=== PATIENT | female | born 1975 | race Caucasian/White ===

== ENCOUNTER 2017-01-02 15:08 | Emergency (ER) | payer OTHER ==
[~2017-01-02] VITALS: Ht 165.1 cm; Wt 76.3 kg
[~2017-01-02 15:08] MED LIST: BACLOFEN20 MG PO; BUSPAR15 MG PO; BUTALB-APAP-CA1 EACH PO; CARAFATE1 GM PO; CATAPRES-TTS 11 EACH TD; CEFTIN500 MG PO; CENTANY30 GM TP; CIPRO500 MG PO; CIPROFLOXACIN500 M1; CLONIDINE1 EAC1 TD; DIAZEPAM10 MG; ERGOCALCIF50000 UNIT PO; FLEXERIL10 MG PO; FLUTICASONE PRO16 GM NS; Flagyl PO; Flonase BOTH NARES; Flovent 220 mcg IH; GABAPENTIN800 MG; GABAPENTIN800 MG PO; INDOCIN25 MG PO; K-DUR20 MEQ PO; KLONOPIN1 M2 TD; KLOR-CON M2020 MEQ PO; LIPITOR40 MG PO; LORTAB 5-325 M1 EACH PO; Lioresal PO; METRONIDAZOLE500 MG; MOTRIN IB200 MG PO; MOTRIN800 MG PO; MUPIROCIN22 GM; NEURONTIN300 MG PO; NORCO 7.5/321 TABLET PO; OMEPRAZOLE40 M1 PO; PANTOPRAZOLE SO40 MG PO; PERCOCET 5/31 TABLET PO; PHENERGAN12.5 M1 PO; PHENERGAN50 MG PR; PRILOSEC40 MG PO; PROMETHAZINE HC25 M1; PROMETHAZINE HC25 M1 PO; PROTONIX40 MG PO; PROZAC20 M1 PO; PROZAC20 MG PO; PROZAC40 MG PO; PROzac PO; Proventil,Ventolin H IH; REQUIP2 MG PO; RESTORIL15 MG PO; RITALIN20 MG PO; TRAMADOL HCL50 MG; TRAMADOL HCL50 MG PO; TYLENOL ARTHRI650 MG PO; TYLENOL WITH C1 EACH PO; ULTRAM50 MG PO; VALACYCLOVIR500 MG PO; VALIUM10 MG PO; VALIUM5 MG PO; VENTOLIN HFA18 GM IH; VIBRAMYCIN100 MG PO; VICODIN,LORT1 TABLET PO; VOLTAREN75 MG PO; ValTRex PO; XANAX0.5 MG PO; ZANAFLEX4 MG PO; ZOFRAN4 MG PO; ZYRTEC10 M2 PO
[2017-01-02 15:15] VITALS: BP 140/85
[2017-01-02 15:59] LABS: HEMATOCRIT 44.1 % (36.0-46.0); MCH 29.7 PG (29.0-34.0); MCHC 32.4 G/DL (30.0-36.0); MCV 91.7 FL (83-99); MEAN PLAT.VOLUME 11.4 uM^3 (9.5-12.4); PLATELET COUNT 253 K/uL (156-360); RBC DIS.WIDTH-CV 14.3 % (11.8-14.6); RBC DIS.WIDTH-SD 48.2 % (39-53); RED BLOOD COUNT 4.81 M/uL (3.80-5.20); WHITE BLOOD COUNT 17.2 K/uL (4.1-10.2)
[2017-01-02 16:20] LABS: ANION GAP 12 MEQ/L (2-14); CHLORIDE 107 MEQ/L (99-109); POTASSIUM 3.2 MEQ/L (3.7-5.4); SAMPLE HEMOLYSIS CHECK 0; SAMPLE ICTERIC CHECK 0; SAMPLE LIPEMIA CHECK 0; SODIUM 139 MEQ/L (136-147)
[2017-01-02 16:26] LABS: GFR ESTIMATE (CALCULATED) > 59 mL/min/; GLUCOSE 115 mg/dL (70-99); UREA NITROGEN (BUN) 15 mg/dL (9-23)
[2017-01-02 20:27] LABS: DIRECT BILIRUBIN 0.1 mg/dL (0.0-0.3); TOTAL BILIRUBIN 0.2 MG/DL (0.0-1.0)
[2017-01-02 20:33] LABS: ALKALINE PHOSPHATASE 77 IU/L (3-129); LIPASE 14 U/L (1.0-51.0)
[2017-01-02 20:37] LABS: QUANTITATIVE HCG < 4.0 MIU/ML
== END 2017-01-02 20:41 | disposition left against medical advice (07) ==
LOC: EME 15:08
DX: R10.9 Unspecified abdominal pain (principal); R31.9 Hematuria, unspecified; Z87.442 Personal history of urinary calculi; J45.909 Unspecified asthma, uncomplicated; M79.7 Fibromyalgia; F17.200 Nicotine dependence, unspecified, uncomplicated; Z91.040 Latex allergy status; Z88.1 Allergy status to other antibiotic agents; Z88.6 Allergy status to analgesic agent; Z88.8 Allergy status to other drugs, medicaments and biological substances; Z88.2 Allergy status to sulfonamides
CPT/HCPCS: 71020; 80048; 80076; 81003; 83690; 84702; 85027; 94640; 99281; 99282

== ENCOUNTER 2017-01-04 03:54 | Emergency (ER) | payer OTHER ==
[~2017-01-04] VITALS: Ht 165.1 cm; Wt 76.6 kg
[2017-01-04 04:52] LABS: HEMATOCRIT 43.4 % (36.0-46.0); MCH 29.6 PG (29.0-34.0); MCHC 31.8 G/DL (30.0-36.0); MCV 93.1 FL (83-99); MEAN PLAT.VOLUME 11.3 uM^3 (9.5-12.4); PLATELET COUNT 250 K/uL (156-360); RBC DIS.WIDTH-CV 14.5 % (11.8-14.6); RBC DIS.WIDTH-SD 49.4 % (39-53); RED BLOOD COUNT 4.66 M/uL (3.80-5.20); WHITE BLOOD COUNT 21.6 K/uL (4.1-10.2)
[2017-01-04 05:01] LABS: CHLORIDE 109 mEq/L (99-109); SODIUM 142 mEq/L (136-147)
[2017-01-04 05:02] LABS: POTASSIUM 3.9 mEq/L (3.7-5.4)
[2017-01-04 05:03] LABS: GLUCOSE 92 mg/dL (70-99)
[2017-01-04 05:04] LABS: ANION GAP 9 MEQ/L (2-14)
[2017-01-04 05:07] LABS: GFR ESTIMATE (CALCULATED) > 59 mL/min/
[2017-01-04 05:08] LABS: UREA NITROGEN (BUN) 21 mg/dL (9-23)
[2017-01-04 05:13] LABS: TROP-I INTERPRETATION NEGATIVE; TROPONIN-I < 0.01 ng/mL (0.0-0.30)
[2017-01-04 05:25] LABS: TOTAL BILIRUBIN 0.2 mg/dL (0.0-1.0)
[2017-01-04 05:26] LABS: ALKALINE PHOSPHATASE 80 IU/L (3-129)
[2017-01-04 05:29] LABS: DIRECT BILIRUBIN 0.1 mg/dL (0.0-0.3)
[2017-01-04 05:30] LABS: LIPASE 16 U/L (1.0-51.0)
[2017-01-04 05:36] LABS: QUANTITATIVE HCG < 4.0 MIU/ML
[2017-01-04 05:37] LABS: ADD MIUA? YES; BILIRUBIN NEGATIVE; BLOOD NEGATIVE; COLOR AMBER ((YELLOW)); GLUCOSE (STRIP) NEGATIVE; KETONES 5; LEUKOCYTES NEGATIVE; NITRITE POSITIVE; PROTEIN (STRIP) 30; SPECIFIC GRAVITY 1.029 (1.000-1.030); UROBILINOGEN 0.2 MG/DL (0.2-1.0)
[2017-01-04 05:55] LABS: EPITHELIAL CELLS 3+ /HPF; RED BLOOD CELLS NONE SEEN /HPF (0-5); WHITE BLOOD CELLS 0-5 /HPF (0-5)
[2017-01-04 05:56] LABS: MUCUS 1+ /LPF
[2017-01-04 05:57] LABS: BACTERIA 4+ /HPF; UCUL ADDED? YES
[2017-01-04 06:48] LABS: INFLUENZA A VIRAL ANTIGEN NEGATIVE; INFLUENZA B VIRAL ANTIGEN NEGATIVE
[2017-01-04] MEDS ORDERED: CIPRO250 MG PO (07:33)
[2017-01-04] MEDS ORDERED: ZOFRAN8 MG PO (07:33)
[2017-01-04] MEDS ORDERED: OXAYDO5 MG PO (07:33)
[2017-01-04 07:46] VITALS: BP 119/69
== END 2017-01-04 08:44 | disposition home or self-care (01) ==
LOC: EME 03:54
PROVIDERS: Emergency Medicine
DX: N30.00 Acute cystitis without hematuria (principal); D72.829 Elevated white blood cell count, unspecified; M79.1 Myalgia; J45.909 Unspecified asthma, uncomplicated; M79.7 Fibromyalgia; F17.200 Nicotine dependence, unspecified, uncomplicated
CPT/HCPCS: 71020; 74177; 80048; 80076; 81003; 83605; 83690; 84484; 84702; 85027; 87040; 87077; 87086; 87186; 87502; 93005; 99281; 99285; J0744; J2270; J2405; J3010; J3360; Q0169

== ENCOUNTER 2017-01-17 19:49 | Emergency (ER) | payer OTHER ==
[~2017-01-17] VITALS: Ht 162.6 cm; Wt 74.4 kg
[~2017-01-17 19:49] MED LIST changes: +CIPRO250 MG PO; +OXAYDO5 MG PO; +ZOFRAN8 MG PO
[2017-01-17 20:10] LABS: HEMATOCRIT 43.2 % (36.0-46.0); MCH 29.8 PG (29.0-34.0); MCHC 32.4 G/DL (30.0-36.0); MCV 91.9 FL (83-99); MEAN PLAT.VOLUME 11.9 uM^3 (9.5-12.4); PLATELET COUNT 262 K/uL (156-360); RBC DIS.WIDTH-CV 14.7 % (11.8-14.6); RBC DIS.WIDTH-SD 49.9 % (39-53); WHITE BLOOD COUNT 17.5 K/uL (4.1-10.2)
[2017-01-17 20:21] LABS: CHLORIDE 109 mEq/L (99-109); POTASSIUM 3.2 mEq/L (3.7-5.4); SODIUM 144 mEq/L (136-147)
[2017-01-17 20:23] LABS: GLUCOSE 83 mg/dL (70-99)
[2017-01-17 20:24] LABS: ANION GAP 11 MEQ/L (2-14)
[2017-01-17 20:26] LABS: ADD MIUA? YES; BILIRUBIN NEGATIVE; BLOOD NEGATIVE; GLUCOSE (STRIP) NEGATIVE; KETONES 5; LEUKOCYTES NEGATIVE; NITRITE NEGATIVE; PROTEIN (STRIP) 30
[2017-01-17 20:27] LABS: GFR ESTIMATE (CALCULATED) > 59 mL/min/
[2017-01-17 20:28] LABS: UREA NITROGEN (BUN) 16 mg/dL (9-23)
[2017-01-17 20:33] LABS: COLOR YELLOW ((YELLOW))
[2017-01-17 20:52] LABS: QUANTITATIVE HCG < 4.0 MIU/ML
[2017-01-17 21:12] LABS: BACTERIA 3+ /HPF; CALCIUM OXALATE CRYSTALS 4+ /HPF; EPITHELIAL CELLS 4+ /HPF; MUCUS NONE SEEN /LPF; RED BLOOD CELLS 0-5 /HPF (0-5); UCUL ADDED? NO; WHITE BLOOD CELLS 0-5 /HPF (0-5)
[2017-01-17] MEDS ORDERED: ULTRAM50 MG PO (22:00)
[2017-01-17] MEDS ORDERED: LEVAQUIN750 MG PO (22:00)
[2017-01-17] MEDS ORDERED: ZOFRAN ODT4 MG PO (22:00)
[2017-01-17 22:18] VITALS: BP 121/84
[2017-01-18] MEDS ORDERED: ZOFRAN ODT4 MG PO (17:15)
[2017-01-18] MEDS ORDERED: TRAMADOL HCL50 MG PO (17:16)
[2017-01-18] MEDS ORDERED: LEVAQUIN750 MG PO (17:16)
[2017-01-18] MEDS ORDERED: ADVIL,NUPRIN,M200 MG PO (17:17)
== END 2017-01-17 22:20 | disposition home or self-care (01) ==
LOC: EME 19:49 → RME 19:49
DX: N39.0 Urinary tract infection, site not specified (principal); F12.90 Cannabis use, unspecified, uncomplicated; R11.2 Nausea with vomiting, unspecified; F17.200 Nicotine dependence, unspecified, uncomplicated
CPT/HCPCS: 80048; 81003; 84702; 85027; 87086; 99281; 99284

== ENCOUNTER 2017-01-18 12:37 | Inpatient (IN) | payer OTHER ==
[~2017-01-18] VITALS: Ht 162.6 cm; Wt 73.5 kg
[~2017-01-18 12:37] MED LIST changes: +LEVAQUIN750 MG PO; +ZOFRAN ODT4 MG PO
[2017-01-18 13:49] LABS: BASOPHIL COUNT 0.1 K/uL (0-0.1); EOSINOPHIL (%) 3.6 % (0-5); EOSINOPHIL COUNT 0.5 K/uL (0-0.3); HEMATOCRIT 40.6 % (36.0-46.0); IMMATURE GRANULOCYTE (%) 1.2 % (0.0-0.7); IMMATURE GRANULOCYTE COUNT 0.2 K/uL; INSTRUMENT ABS NEUTROPHIL CT 8.7 K/uL; LYMPHOCYTE COUNT 2.4 K/uL (1.0-2.8); MCH 29.7 PG (29.0-34.0); MCHC 32.3 G/DL (30.0-36.0); MCV 92.1 FL (83-99); MEAN PLAT.VOLUME 11.4 uM^3 (9.5-12.4); NEUTROPHIL (%) 68.2 % (45-76); NEUTROPHIL COUNT 8.7 K/uL (1.8-6.4); PLATELET COUNT 226 K/uL (156-360); RBC DIS.WIDTH-CV 14.7 % (11.8-14.6); RBC DIS.WIDTH-SD 49.6 % (39-53); RED BLOOD COUNT 4.41 M/uL (3.80-5.20); WHITE BLOOD COUNT 12.7 K/uL (4.1-10.2)
[2017-01-18 14:01] LABS: CHLORIDE 109 mEq/L (99-109); POTASSIUM 3.4 mEq/L (3.7-5.4); SODIUM 139 mEq/L (136-147)
[2017-01-18 14:04] LABS: ANION GAP 9 MEQ/L (2-14); GLUCOSE 107 mg/dL (70-99)
[2017-01-18 14:05] LABS: TOTAL BILIRUBIN 0.2 mg/dL (0.0-1.0)
[2017-01-18 14:06] LABS: SERUM ETHYL ALCOHOL < 10 mg/dL
[2017-01-18 14:07] LABS: ALKALINE PHOSPHATASE 59 IU/L (3-129); GFR ESTIMATE (CALCULATED) > 59 mL/min/
[2017-01-18 14:08] LABS: UREA NITROGEN (BUN) 14 mg/dL (9-23)
[2017-01-18 14:15] LABS: QUANTITATIVE HCG < 4.0 MIU/ML
[2017-01-18] MEDS ORDERED: ZOFRAN ODT4 MG PO (17:15)
[2017-01-18] MEDS ORDERED: TRAMADOL HCL50 MG PO (17:16)
[2017-01-18] MEDS ORDERED: LEVAQUIN750 MG PO (17:16)
[2017-01-18] MEDS ORDERED: ADVIL,NUPRIN,M200 MG PO (17:17)
[2017-01-18 17:46] LABS: ADD MIUA? YES; BILIRUBIN NEGATIVE; BLOOD NEGATIVE; COLOR YELLOW ((YELLOW)); GLUCOSE (STRIP) NEGATIVE; KETONES NEGATIVE; LEUKOCYTES NEGATIVE; NITRITE NEGATIVE; PROTEIN (STRIP) NEGATIVE; SPECIFIC GRAVITY 1.017 (1.000-1.030); UROBILINOGEN 0.2 MG/DL (0.2-1.0)
[2017-01-18 17:57] LABS: COCAINE PRESUMPTIVE POSITIVE (150 ng/mL); METHAMPHETAMINE NEGATIVE (500 ng/mL); OPIATES (MORPHINE) PRESUMPTIVE POSITIVE (100 ng/mL); PHENCYCLIDINE NEGATIVE (25 ng/mL); THC CANNABINOIDS PRESUMPTIVE POSITIVE (50 ng/mL)
[2017-01-18 17:58] LABS: ADD MEDTOX COMMENT Y; AMPHETAMINE NEGATIVE (500 ng/mL); BARBITURATES NEGATIVE (200 ng/mL); BENZODIAZEPINES PRESUMPTIVE POSITIVE (150 ng/mL); INTERNAL CONTROLS VALID? YES; METHADONE NEGATIVE (200 ng/mL); OXYCODONE NEGATIVE (100 ng/mL); PROPOXYPHENE NEGATIVE (300 ng/mL); TRICYCLIC ANTIDEPRESSANTS NEGATIVE (300 ng/mL)
[2017-01-18 18:00] LABS: BACTERIA RARE /HPF; EPITHELIAL CELLS 2+ /HPF; MUCUS 1+ /LPF; RED BLOOD CELLS 0-5 /HPF (0-5); UCUL ADDED? NO; WHITE BLOOD CELLS 0-5 /HPF (0-5)
[2017-01-18 19:30] LABS: BENZODIAZEPINES QUANT VALUE 0 NG/ML
[2017-01-18 19:41] LABS: BENZODIAZEPINES, URINE SCREEN Negative (200 ng/mL)
[2017-01-18 20:50] VITALS: BP 117/78
[2017-01-19 12:46] VITALS: BP 109/65
[2017-01-19 16:12] VITALS: BP 107/62
[2017-01-20 07:43] VITALS: BP 96/53
[2017-01-20] MEDS ORDERED: DULOXETINE HCL30 MG PO (08:52)
== END 2017-01-20 10:04 | disposition home or self-care (01) | DRG 885 ==
LOC: EME 12:37 → EDOF 18:43 → 1WEST 18:43
PROVIDERS: Emergency Medicine
DX: F32.1 Major depressive disorder, single episode, moderate (principal); F17.210 Nicotine dependence, cigarettes, uncomplicated; F12.90 Cannabis use, unspecified, uncomplicated; M79.7 Fibromyalgia; R45.851 Suicidal ideations; G89.29 Other chronic pain; R82.90 Unspecified abnormal findings in urine; Z91.14 Patient's other noncompliance with medication regimen; Z91.040 Latex allergy status
CPT/HCPCS: 74176; 80053; 81003; 84702; 84999; 85025; 87086; 90839; 99281; 99285; G0480

== ENCOUNTER 2017-02-03 16:31 | Emergency (ER) | payer OTHER ==
[~2017-02-03] VITALS: Ht 165.1 cm; Wt 72.9 kg
[~2017-02-03 16:31] MED LIST changes: +ADVIL,NUPRIN,M200 MG PO; +DULOXETINE HCL30 MG PO
[2017-02-03 17:44] LABS: HEMATOCRIT 39.6 % (36.0-46.0); MCH 29.5 PG (29.0-34.0); MCHC 32.8 G/DL (30.0-36.0); MEAN PLAT.VOLUME 11.6 uM^3 (9.5-12.4); PLATELET COUNT 194 K/uL (156-360); RBC DIS.WIDTH-CV 14.6 % (11.8-14.6); RBC DIS.WIDTH-SD 48.4 % (39-53)
[2017-02-03 17:52] LABS: CHLORIDE 111 mEq/L (99-109); POTASSIUM 3.4 mEq/L (3.7-5.4); SODIUM 143 mEq/L (136-147)
[2017-02-03 17:54] LABS: GLUCOSE 99 mg/dL (70-99)
[2017-02-03 17:56] LABS: ANION GAP 11 MEQ/L (2-14)
[2017-02-03 17:58] LABS: GFR ESTIMATE (CALCULATED) > 59 mL/min/
[2017-02-03 17:59] LABS: UREA NITROGEN (BUN) 9 mg/dL (9-23)
[2017-02-03 17:59] LABS: ADD MIUA? YES; BILIRUBIN NEGATIVE; BLOOD NEGATIVE; COLOR YELLOW ((YELLOW)); GLUCOSE (STRIP) NEGATIVE; KETONES NEGATIVE; LEUKOCYTES NEGATIVE; NITRITE NEGATIVE; PROTEIN (STRIP) 30; UROBILINOGEN 0.2 MG/DL (0.2-1.0)
[2017-02-03 18:00] VITALS: BP 124/73
[2017-02-03 18:03] LABS: BACTERIA RARE /HPF; EPITHELIAL CELLS 1+ /HPF; MUCUS 1+ /LPF; RED BLOOD CELLS 0-5 /HPF (0-5); WHITE BLOOD CELLS 0-5 /HPF (0-5)
== END 2017-02-03 18:30 | disposition home or self-care (01) ==
LOC: EME 16:31
PROVIDERS: Emergency Medicine
DX: M79.7 Fibromyalgia (principal); E87.6 Hypokalemia; R68.83 Chills (without fever); J45.909 Unspecified asthma, uncomplicated; F31.9 Bipolar disorder, unspecified; F43.10 Post-traumatic stress disorder, unspecified; F42.8 Other obsessive-compulsive disorder; F41.0 Panic disorder [episodic paroxysmal anxiety]; F91.3 Oppositional defiant disorder; F17.200 Nicotine dependence, unspecified, uncomplicated
CPT/HCPCS: 80048; 81003; 85027; 87086; 99281; 99284

== ENCOUNTER 2017-04-22 16:20 | Emergency (ER) | payer OTHER ==
[~2017-04-22] VITALS: Ht 160 cm; Wt 75.0 kg
[2017-04-22 19:21] LABS: BASOPHIL COUNT 0.1 K/uL (0-0.1); EOSINOPHIL (%) 4.8 % (0-5); EOSINOPHIL COUNT 0.6 K/uL (0-0.3); HEMATOCRIT 40.9 % (36.0-46.0); IMMATURE GRANULOCYTE (%) 0.6 % (0.0-0.7); IMMATURE GRANULOCYTE COUNT 0.1 K/uL; INSTRUMENT ABS NEUTROPHIL CT 8.1 K/uL; LYMPHOCYTE COUNT 3.3 K/uL (1.0-2.8); MCH 30.3 PG (29.0-34.0); MCV 89.3 FL (83-99); MEAN PLAT.VOLUME 11.9 uM^3 (9.5-12.4); MONOCYTE (%) 4.9 % (3-12); MONOCYTE COUNT 0.6 K/uL (0-0.8); NEUTROPHIL (%) 63.1 % (45-76); NEUTROPHIL COUNT 8.1 K/uL (1.8-6.4); PLATELET COUNT 161 K/uL (156-360); RBC DIS.WIDTH-CV 14.3 % (11.8-14.6); RBC DIS.WIDTH-SD 46.1 % (39-53); RED BLOOD COUNT 4.58 M/uL (3.80-5.20); WHITE BLOOD COUNT 12.8 K/uL (4.1-10.2)
[2017-04-22 19:31] LABS: CHLORIDE 107 mEq/L (99-109); POTASSIUM 3.7 mEq/L (3.7-5.4); SODIUM 139 mEq/L (136-147)
[2017-04-22 19:34] LABS: GLUCOSE 88 mg/dL (70-99)
[2017-04-22 19:35] LABS: ANION GAP 11 MEQ/L (2-14)
[2017-04-22 19:36] LABS: TOTAL BILIRUBIN 0.2 mg/dL (0.0-1.0)
[2017-04-22 19:37] LABS: ALKALINE PHOSPHATASE 78 IU/L (3-129); GFR ESTIMATE (CALCULATED) > 59 mL/min/
[2017-04-22 19:39] LABS: UREA NITROGEN (BUN) 11 mg/dL (9-23)
[2017-04-22 19:46] LABS: QUANTITATIVE HCG < 4.0 MIU/ML
[2017-04-22 19:48] LABS: ADD MIUA? NO; BILIRUBIN NEGATIVE; BLOOD NEGATIVE; COLOR YELLOW ((YELLOW)); GLUCOSE (STRIP) NEGATIVE; KETONES NEGATIVE; LEUKOCYTES NEGATIVE; NITRITE NEGATIVE; PROTEIN (STRIP) NEGATIVE; SPECIFIC GRAVITY 1.006 (1.000-1.030); UCUL ADDED? NO; UROBILINOGEN 0.2 MG/DL (0.2-1.0)
[2017-04-22] MEDS ORDERED: FLOMAX0.4 MG PO (21:47)
[2017-04-22 21:59] VITALS: BP 127/79
== END 2017-04-22 22:02 | disposition home or self-care (01) ==
LOC: EME 16:20
PROVIDERS: Emergency Medicine
DX: R33.9 Retention of urine, unspecified (principal); R10.9 Unspecified abdominal pain; K57.30 Diverticulosis of large intestine without perforation or abscess without bleeding; K42.9 Umbilical hernia without obstruction or gangrene; R91.1 Solitary pulmonary nodule; Z90.49 Acquired absence of other specified parts of digestive tract; Z90.710 Acquired absence of both cervix and uterus; F17.200 Nicotine dependence, unspecified, uncomplicated
CPT/HCPCS: 74176; 80053; 81003; 84702; 85025; 87086; 99281; 99285; J3010

== ENCOUNTER 2017-10-22 20:21 | Inpatient (IN) | payer OTHER ==
[~2017-10-22] VITALS: Ht 165.1 cm; Wt 78.4 kg
[~2017-10-22 20:21] MED LIST changes: +ADDERALL XR 3030 MG PO; +FLOMAX0.4 MG PO
[2017-10-22 20:47] LABS: HEMATOCRIT 39.9 % (36.0-46.0); MCH 31.1 PG (29.0-34.0); MCHC 35.1 G/DL (30.0-36.0); MCV 88.7 FL (83-99); PLATELET COUNT 195 K/uL (156-360); RBC DIS.WIDTH-CV 13.8 % (11.8-14.6); RBC DIS.WIDTH-SD 44.8 % (39-53); WHITE BLOOD COUNT 14.4 K/uL (4.1-10.2)
[2017-10-22 20:56] LABS: CHLORIDE 106 mEq/L (99-109); POTASSIUM 3.1 mEq/L (3.7-5.4); SODIUM 138 mEq/L (136-147)
[2017-10-22 20:57] LABS: GLUCOSE 114 mg/dL (70-99)
[2017-10-22 21:01] LABS: GFR ESTIMATE (CALCULATED) > 59 mL/min/
[2017-10-22 21:02] LABS: UREA NITROGEN (BUN) 16 mg/dL (9-23)
[2017-10-22 21:10] LABS: TROP-I INTERPRETATION NEGATIVE; TROPONIN-I 0.01 ng/mL (0.0-0.30)
[2017-10-23] MEDS ORDERED: TRAZODONE HCL50 MG PO (00:12)
[2017-10-23] MEDS ORDERED: CONCERTA36 MG PO (00:12)
[2017-10-23 03:18] LABS: TROP-I INTERPRETATION NEGATIVE; TROPONIN-I < 0.01 ng/mL (0.0-0.30)
[2017-10-23 07:11] LABS: APPEARANCE CLEAR ((CLEAR)); BILIRUBIN NEGATIVE; BLOOD NEGATIVE; COLOR YELLOW ((YELLOW)); GLUCOSE (STRIP) NEGATIVE; KETONES NEGATIVE; LEUKOCYTES NEGATIVE; NITRITE NEGATIVE; PROTEIN (STRIP) NEGATIVE; UCUL ADDED? NO; UROBILINOGEN 0.2 MG/DL (0.2-1.0)
[2017-10-23 08:11] LABS: SPECIFIC GRAVITY 1.074 (1.000-1.030)
[2017-10-23 08:54] LABS: CHLORIDE 111 mEq/L (99-109); SODIUM 144 mEq/L (136-147)
[2017-10-23 08:55] LABS: POTASSIUM 3.9 mEq/L (3.7-5.4)
[2017-10-23 08:56] LABS: GLUCOSE 94 mg/dL (70-99)
[2017-10-23 09:00] LABS: CREATININE 0.8 mg/dL (0.6-1.3); GFR ESTIMATE (CALCULATED) > 59 mL/min/
[2017-10-23 09:01] LABS: UREA NITROGEN (BUN) 11 mg/dL (9-23)
[2017-10-23 09:14] VITALS: BP 112/65
[2017-10-23] MEDS ORDERED: PROZAC40 MG PO (12:00)
== END 2017-10-23 09:15 | disposition left against medical advice (07) | DRG 385 ==
LOC: EME 20:21 → EDOF 10-23 02:02 → ENRESERV 10-23 02:11 → EDOF 10-23 09:15
PROVIDERS: Hospitalist; Internal Medicine
DX: K51.011 Ulcerative (chronic) pancolitis with rectal bleeding (principal); J18.9 Pneumonia, unspecified organism; N30.20 Other chronic cystitis without hematuria; M79.7 Fibromyalgia; G43.909 Migraine, unspecified, not intractable, without status migrainosus; M54.9 Dorsalgia, unspecified; H54.62 Unqualified visual loss, left eye, normal vision right eye; F41.0 Panic disorder [episodic paroxysmal anxiety]; R20.2 Paresthesia of skin; R42 Dizziness and giddiness; F31.9 Bipolar disorder, unspecified; F42.9 Obsessive-compulsive disorder, unspecified; F43.10 Post-traumatic stress disorder, unspecified; H53.8 Other visual disturbances; J45.909 Unspecified asthma, uncomplicated; F17.200 Nicotine dependence, unspecified, uncomplicated; Z90.710 Acquired absence of both cervix and uterus
CPT/HCPCS: 70450; 70498; 71045; 71275; 74177; 80048; 81003; 83605; 83880; 84484; 85027; 87040; 87493; 93005; J1956; J2060; J2270; J2405; J7030

== ENCOUNTER 2017-10-23 09:29 | Inpatient (IN) | payer OTHER ==
[~2017-10-23] VITALS: Ht 165.1 cm; Wt 78.8 kg
[~2017-10-23 09:29] MED LIST changes: +CONCERTA36 MG PO; +TRAZODONE HCL50 MG PO
[2017-10-23] MEDS ORDERED: PROZAC40 MG PO (12:00)
[2017-10-23 14:46] LABS: TROP-I INTERPRETATION NEGATIVE; TROPONIN-I 0.01 ng/mL (0.0-0.30)
[2017-10-23 15:09] LABS: HEMOGLOBIN A1c (GLYCOHEMOGLOB) 5.4 % HGB (Below 5.7)
[2017-10-23 20:40] VITALS: BP 101/57
[2017-10-24 02:09] LABS: BENZODIAZEPINES, URINE SCREEN POSITIVE (200 ng/mL)
[2017-10-24 04:08] VITALS: BP 102/58
[2017-10-24 06:51] LABS: ALBUMIN 2.8 G/DL (3.2-4.8); ALKALINE PHOSPHATASE 53 IU/L (3-129); ALT (GPT) 10 IU/L (3-49); AST (GOT) 12 IU/L (2-34); CHLORIDE 112 MEQ/L (99-109); CREATININE 0.7 MG/DL (0.6-1.3); GFR ESTIMATE (CALCULATED) > 59 mL/min/; GLUCOSE 74 mg/dL (70-99); POTASSIUM 3.6 MEQ/L (3.7-5.4); SODIUM 140 MEQ/L (136-147); TOTAL BILIRUBIN 0.3 MG/DL (0.0-1.0); UREA NITROGEN (BUN) 10 mg/dL (9-23)
[2017-10-24 07:13] LABS: HEMATOCRIT 34.3 % (36.0-46.0); MCH 29.6 PG (29.0-34.0); MCHC 31.8 G/DL (30.0-36.0); PLATELET COUNT 160 K/uL (156-360); RBC DIS.WIDTH-CV 14.1 % (11.8-14.6); RBC DIS.WIDTH-SD 47.8 % (39-53); RED BLOOD COUNT 3.68 M/uL (3.80-5.20); WHITE BLOOD COUNT 9.2 K/uL (4.1-10.2)
[2017-10-24 07:23] LABS: HEMOGLOBIN 10.9 G/DL (11.9-15.5); MCV 93.2 FL (83-99)
[2017-10-24 08:19] VITALS: BP 101/59
[2017-10-24 11:42] VITALS: BP 119/72
[2017-10-24 14:40] LABS: BASOPHIL (%) 0.5 % (0-1); BASOPHIL COUNT 0.1 K/uL (0-0.1); EOSINOPHIL (%) 5.9 % (0-5); EOSINOPHIL COUNT 0.6 K/uL (0-0.3); HEMATOCRIT 34.1 % (36.0-46.0); HEMOGLOBIN 11.1 G/DL (11.9-15.5); IMMATURE GRANULOCYTE (%) 0.9 % (0.0-0.7); LYMPHOCYTE (%) 14.9 % (15-42); LYMPHOCYTE COUNT 1.5 K/uL (1.0-2.8); MCHC 32.6 G/DL (30.0-36.0); MCV 92.2 FL (83-99); MONOCYTE (%) 6.6 % (3-12); MONOCYTE COUNT 0.7 K/uL (0-0.8); NEUTROPHIL (%) 71.2 % (45-76); NEUTROPHIL COUNT 7.3 K/uL (1.8-6.4); PLATELET COUNT 146 K/uL (156-360); RBC DIS.WIDTH-CV 14.1 % (11.8-14.6); RBC DIS.WIDTH-SD 47.8 % (39-53); WHITE BLOOD COUNT 10.2 K/uL (4.1-10.2)
[2017-10-24 14:50] LABS: PTT 27.8 SEC (25-37)
[2017-10-24 14:51] LABS: INTER. NORMALIZED RATIO 1.2
[2017-10-24 15:33] LABS: THYROTROPIN (TSH) 1.3 MIU/L (0.4-5.5)
[2017-10-24 17:09] VITALS: BP 133/78
[2017-10-24 17:09] LABS: AMYLASE 28 IU/L (1-118)
[2017-10-25 00:25] VITALS: BP 126/67
[2017-10-25 04:04] VITALS: BP 121/57
[2017-10-25 06:36] LABS: CHLORIDE 110 MEQ/L (99-109); CREATININE 0.7 MG/DL (0.6-1.3); GFR ESTIMATE (CALCULATED) > 59 mL/min/; GLUCOSE 77 mg/dL (70-99); POTASSIUM 4.2 MEQ/L (3.7-5.4); SODIUM 138 MEQ/L (136-147); UREA NITROGEN (BUN) 7 mg/dL (9-23)
[2017-10-25 06:46] LABS: HEMATOCRIT 34.7 % (36.0-46.0); HEMOGLOBIN 11.7 G/DL (11.9-15.5); MCHC 33.7 G/DL (30.0-36.0); MCV 91.8 FL (83-99); PLATELET COUNT 150 K/uL (156-360); RBC DIS.WIDTH-CV 13.6 % (11.8-14.6); RBC DIS.WIDTH-SD 46.5 % (39-53); RED BLOOD COUNT 3.78 M/uL (3.80-5.20)
[2017-10-25 08:54] VITALS: BP 121/71
[2017-10-25 16:30] VITALS: BP 135/69
[2017-10-26 07:16] LABS: BASOPHIL (%) 0.6 % (0-1); BASOPHIL COUNT 0.1 K/uL (0-0.1); EOSINOPHIL (%) 7.1 % (0-5); EOSINOPHIL COUNT 0.6 K/uL (0-0.3); HEMATOCRIT 37.1 % (36.0-46.0); HEMOGLOBIN 11.9 G/DL (11.9-15.5); IMMATURE GRANULOCYTE (%) 0.3 % (0.0-0.7); LYMPHOCYTE (%) 24.7 % (15-42); LYMPHOCYTE COUNT 2.2 K/uL (1.0-2.8); MCH 29.2 PG (29.0-34.0); MCHC 32.1 G/DL (30.0-36.0); MCV 91.2 FL (83-99); MONOCYTE (%) 7.8 % (3-12); MONOCYTE COUNT 0.7 K/uL (0-0.8); NEUTROPHIL (%) 59.5 % (45-76); NEUTROPHIL COUNT 5.4 K/uL (1.8-6.4); PLATELET COUNT 170 K/uL (156-360); RBC DIS.WIDTH-CV 13.8 % (11.8-14.6); RBC DIS.WIDTH-SD 46.5 % (39-53); RED BLOOD COUNT 4.07 M/uL (3.80-5.20); WHITE BLOOD COUNT 9.1 K/uL (4.1-10.2)
[2017-10-26 07:21] VITALS: BP 98/55
[2017-10-26 07:41] LABS: CHLORIDE 108 MEQ/L (99-109); CREATININE 0.8 MG/DL (0.6-1.3); GFR ESTIMATE (CALCULATED) > 59 mL/min/; GLUCOSE 80 mg/dL (70-99); SODIUM 138 MEQ/L (136-147); UREA NITROGEN (BUN) 5 mg/dL (9-23)
[2017-10-26 08:23] VITALS: BP 107/57
[2017-10-26] MEDS ORDERED: TRAZODONE HCL50 MG PO (13:31)
[2017-10-26] MEDS ORDERED: BENTYL20 MG PO (13:31)
[2017-10-26] MEDS ORDERED: FLAGYL500 MG PO (13:33)
[2017-10-26] MEDS ORDERED: LEVAQUIN750 MG PO (13:33)
== END 2017-10-26 14:40 | disposition home or self-care (01) | DRG 193 ==
LOC: EME 09:29 → 5EAST 13:28 → EDOF 13:28 → ENRESERV 13:29 → 5EAST 20:39 → ENPENDDIS 10-26 → 5EAST 10-26 14:40
PROVIDERS: Internal Medicine; Specialist; Student in an Organized Health Care Education/Training Program
DX: J18.9 Pneumonia, unspecified organism (principal); J81.0 Acute pulmonary edema; K51.00 Ulcerative (chronic) pancolitis without complications; E78.5 Hyperlipidemia, unspecified; F31.9 Bipolar disorder, unspecified; F17.210 Nicotine dependence, cigarettes, uncomplicated; N30.10 Interstitial cystitis (chronic) without hematuria; G43.909 Migraine, unspecified, not intractable, without status migrainosus; J45.909 Unspecified asthma, uncomplicated; N30.20 Other chronic cystitis without hematuria; H54.62 Unqualified visual loss, left eye, normal vision right eye; F41.0 Panic disorder [episodic paroxysmal anxiety]; F42.9 Obsessive-compulsive disorder, unspecified; F43.10 Post-traumatic stress disorder, unspecified; F90.9 Attention-deficit hyperactivity disorder, unspecified type; M79.7 Fibromyalgia; D50.0 Iron deficiency anemia secondary to blood loss (chronic); G89.29 Other chronic pain; Z90.710 Acquired absence of both cervix and uterus; Z90.49 Acquired absence of other specified parts of digestive tract; Z82.49 Family history of ischemic heart disease and other diseases of the circulatory system
CPT/HCPCS: 80048; 80053; 80306 90; 82150; 82607; 83036; 83605; 83880; 84443; 84484; 85025; 85025 91; 85027; 85610; 85730; 86850; 86900; 86901; 86920; 87040; 87493; 93306; 99281; 99285; C9113; J1170; J1630; J1956; J2060; J2405; J3480; J7030; S0028; S0030

== ENCOUNTER 2017-10-30 07:25 | Emergency (ER) | payer OTHER ==
[~2017-10-30] VITALS: Ht 160 cm; Wt 79.7 kg
[~2017-10-30 07:25] MED LIST changes: +BENTYL20 MG PO; +FLAGYL500 MG PO
[2017-10-30 07:28] VITALS: BP 131/100
== END 2017-10-30 09:10 | disposition left against medical advice (07) ==
LOC: EME 07:25
DX: S69.90XA Unspecified injury of unspecified wrist, hand and finger(s), initial encounter (principal); S89.90XA Unspecified injury of unspecified lower leg, initial encounter; S99.929A Unspecified injury of unspecified foot, initial encounter; W10.9XXA Fall (on) (from) unspecified stairs and steps, initial encounter; Z53.21 Procedure and treatment not carried out due to patient leaving prior to being seen by health care provider
CPT/HCPCS: 73130; 73564; 73630

== ENCOUNTER 2018-01-14 20:33 | Emergency (ER) | payer OTHER ==
[~2018-01-14] VITALS: Ht 167.6 cm; Wt 79.1 kg
[2018-01-14 21:30] LABS: APPEARANCE CLEAR ((CLEAR)); BILIRUBIN NEGATIVE; BLOOD NEGATIVE; COLOR YELLOW ((YELLOW)); GLUCOSE (STRIP) NEGATIVE; KETONES NEGATIVE; LEUKOCYTES NEGATIVE; NITRITE NEGATIVE; PROTEIN (STRIP) 30; SPECIFIC GRAVITY 1.028 (1.000-1.030); UCUL ADDED? NO
[2018-01-14 22:24] LABS: AMPHETAMINE PRESUMPTIVE POSITIVE (500 ng/mL); BARBITURATES NEGATIVE (200 ng/mL); BENZODIAZEPINES NEGATIVE (150 ng/mL); BUPRENORPHINE NEGATIVE (10 ng/mL); COCAINE NEGATIVE (150 ng/mL); METHADONE NEGATIVE (200 ng/mL); METHAMPHETAMINE NEGATIVE (500 ng/mL); OPIATES (MORPHINE) NEGATIVE (100 ng/mL); OXYCODONE NEGATIVE (100 ng/mL); PHENCYCLIDINE NEGATIVE (25 ng/mL); PROPOXYPHENE NEGATIVE (300 ng/mL); THC CANNABINOIDS PRESUMPTIVE POSITIVE (50 ng/mL); TRICYCLIC ANTIDEPRESSANTS NEGATIVE (300 ng/mL)
[2018-01-14 22:28] LABS: HEMATOCRIT 39.4 % (36.0-46.0); HEMOGLOBIN 13.5 G/DL (11.9-15.5); MCHC 34.3 G/DL (30.0-36.0); MCV 90.4 FL (83-99); PLATELET COUNT 179 K/uL (156-360); RBC DIS.WIDTH-CV 13.9 % (11.8-14.6); RBC DIS.WIDTH-SD 46.2 % (39-53); RED BLOOD COUNT 4.36 M/uL (3.80-5.20); WHITE BLOOD COUNT 12.8 K/uL (4.1-10.2)
[2018-01-14 22:37] LABS: CHLORIDE 106 mEq/L (99-109); POTASSIUM 3.2 mEq/L (3.7-5.4); SODIUM 137 mEq/L (136-147)
[2018-01-14 22:40] LABS: GLUCOSE 107 mg/dL (70-99); TOTAL PROTEIN 7.9 g/dL (6.4-8.3)
[2018-01-14 22:41] LABS: TOTAL BILIRUBIN 0.3 mg/dL (0.0-1.0)
[2018-01-14 22:43] LABS: ALKALINE PHOSPHATASE 85 IU/L (3-129); CREATININE 0.8 mg/dL (0.6-1.3); GFR ESTIMATE (CALCULATED) > 59 mL/min/
[2018-01-14 22:44] LABS: UREA NITROGEN (BUN) 16 mg/dL (9-23)
[2018-01-14 22:45] LABS: AST (GOT) 18 IU/L (2-34)
[2018-01-14 22:46] LABS: ALT (GPT) 17 IU/L (3-49)
[2018-01-14 22:52] LABS: QUANTITATIVE HCG < 4.0 MIU/ML
[2018-01-14] MEDS ORDERED: NORCO 5/3251 TABLET PO (23:56)
[2018-01-14] MEDS ORDERED: ZOFRAN ODT4 MG PO (23:56)
[2018-01-15 00:06] VITALS: BP 142/93
== END 2018-01-15 00:07 | disposition home or self-care (01) ==
LOC: EME 20:33
PROVIDERS: Physician Assistant
DX: N20.0 Calculus of kidney (principal); K57.90 Diverticulosis of intestine, part unspecified, without perforation or abscess without bleeding; M79.7 Fibromyalgia; J45.909 Unspecified asthma, uncomplicated; F41.9 Anxiety disorder, unspecified; F31.9 Bipolar disorder, unspecified; F42.9 Obsessive-compulsive disorder, unspecified; F43.10 Post-traumatic stress disorder, unspecified; F91.3 Oppositional defiant disorder; F17.200 Nicotine dependence, unspecified, uncomplicated; Z87.19 Personal history of other diseases of the digestive system; Z90.49 Acquired absence of other specified parts of digestive tract; Z90.710 Acquired absence of both cervix and uterus; Z91.040 Latex allergy status; Z88.0 Allergy status to penicillin; Z88.2 Allergy status to sulfonamides; Z88.6 Allergy status to analgesic agent; Z88.1 Allergy status to other antibiotic agents; Z88.8 Allergy status to other drugs, medicaments and biological substances
CPT/HCPCS: 74176; 80053; 81003; 84702; 84999; 85027; 99281; 99284

== ENCOUNTER 2018-01-16 17:39 | Emergency (ER) | payer OTHER ==
[~2018-01-16] VITALS: Ht 162.6 cm; Wt 81.2 kg
[~2018-01-16 17:39] MED LIST changes: +NORCO 5/3251 TABLET PO
[2018-01-16 18:05] VITALS: BP 137/78
[2018-01-16 19:54] LABS: APPEARANCE CLEAR ((CLEAR)); BILIRUBIN NEGATIVE; BLOOD NEGATIVE; COLOR YELLOW ((YELLOW)); GLUCOSE (STRIP) NEGATIVE; KETONES NEGATIVE; LEUKOCYTES NEGATIVE; NITRITE NEGATIVE; PROTEIN (STRIP) 30; UCUL ADDED? NO; UROBILINOGEN 0.2 MG/DL (0.2-1.0)
== END 2018-01-16 21:28 | disposition left against medical advice (07) ==
LOC: EME 17:39
DX: R10.9 Unspecified abdominal pain (principal); Z53.21 Procedure and treatment not carried out due to patient leaving prior to being seen by health care provider
CPT/HCPCS: 81003

== ENCOUNTER 2018-03-12 17:00 | Inpatient (IN) | payer OTHER ==
[~2018-03-12] VITALS: Ht 162.6 cm; Wt 85.2 kg
[2018-03-12 17:33] LABS: HEMOGLOBIN 13.4 G/DL (11.9-15.5); MCH 30.7 PG (29.0-34.0); MCHC 33.5 G/DL (30.0-36.0); MCV 91.5 FL (83-99); PLATELET COUNT 267 K/uL (156-360); RBC DIS.WIDTH-CV 14.7 % (11.8-14.6); RBC DIS.WIDTH-SD 49.6 % (39-53); RED BLOOD COUNT 4.37 M/uL (3.80-5.20)
[2018-03-12 17:38] LABS: INTER. NORMALIZED RATIO 0.9
[2018-03-12 17:41] LABS: CHLORIDE 105 mEq/L (99-109); POTASSIUM 3.4 mEq/L (3.7-5.4); SODIUM 141 mEq/L (136-147)
[2018-03-12 17:42] LABS: MAGNESIUM 2.4 mg/dL (1.3-2.7)
[2018-03-12 17:43] LABS: GLUCOSE 100 mg/dL (70-99)
[2018-03-12 17:47] LABS: CREATININE 0.8 mg/dL (0.6-1.3); GFR ESTIMATE (CALCULATED) > 59 mL/min/
[2018-03-12 17:48] LABS: UREA NITROGEN (BUN) 25 mg/dL (9-23)
[2018-03-12 17:55] LABS: TROP-I INTERPRETATION NEGATIVE; TROPONIN-I < 0.01 ng/mL (0.0-0.30)
[2018-03-12 18:55] LABS: ABS NEUTROPHIL COUNT 9.7; ANISOCYTOSIS 1+; EOSINOPHIL ABS CT 0.3; EOSINOPHILS 1.7 % (0-5.0); METAMYELOCYTES 0.9 %; MONOCYTES 9.6 % (0-9.0); MYELOCYTES 0.9 %; PLAT.SUFFICIENCY ADEQUATE; SEG.NEUTROPHILS 50.9 % (46.0-76.0)
[2018-03-12 19:24] LABS: ALBUMIN 3.6 g/dL (3.2-4.8)
[2018-03-12 19:26] LABS: D-DIMER ELISA < 150.00 ng/mLDDU (<230)
[2018-03-12 19:27] LABS: TOTAL PROTEIN 6.6 g/dL (6.4-8.3)
[2018-03-12 19:27] LABS: APPEARANCE CLEAR ((CLEAR)); BILIRUBIN NEGATIVE; BLOOD NEGATIVE; COLOR YELLOW ((YELLOW)); GLUCOSE (STRIP) NEGATIVE; KETONES NEGATIVE; LEUKOCYTES NEGATIVE; NITRITE NEGATIVE; PROTEIN (STRIP) NEGATIVE; UCUL ADDED? NO; UROBILINOGEN 0.2 MG/DL (0.2-1.0)
[2018-03-12 19:29] LABS: TOTAL BILIRUBIN 0.2 mg/dL (0.0-1.0)
[2018-03-12 19:30] LABS: ALKALINE PHOSPHATASE 67 IU/L (3-129)
[2018-03-12 19:32] LABS: AST (GOT) 15 IU/L (2-34); DIRECT BILIRUBIN 0.1 mg/dL (0.0-0.3)
[2018-03-12 19:33] LABS: ALT (GPT) 30 IU/L (3-49); LIPASE 42 U/L (1.0-51.0)
[2018-03-12 19:35] LABS: AMPHETAMINE NEGATIVE (500 ng/mL); BARBITURATES NEGATIVE (200 ng/mL); BUPRENORPHINE NEGATIVE (10 ng/mL); COCAINE NEGATIVE (150 ng/mL); METHADONE NEGATIVE (200 ng/mL); METHAMPHETAMINE NEGATIVE (500 ng/mL); OPIATES (MORPHINE) NEGATIVE (100 ng/mL); OXYCODONE NEGATIVE (100 ng/mL); PHENCYCLIDINE NEGATIVE (25 ng/mL); PROPOXYPHENE NEGATIVE (300 ng/mL); THC CANNABINOIDS NEGATIVE (50 ng/mL); TRICYCLIC ANTIDEPRESSANTS NEGATIVE (300 ng/mL)
[2018-03-12 19:36] LABS: BENZODIAZEPINES PRESUMPTIVE POSITIVE (150 ng/mL)
[2018-03-12 20:12] LABS: BENZODIAZEPINES, URINE SCREEN Negative (200 ng/mL)
[2018-03-12 21:28] LABS: TROP-I INTERPRETATION POSITIVE
[2018-03-12 21:38] LABS: TROPONIN-I 1.87 ng/mL (0.0-0.30)
[2018-03-12] MEDS ORDERED: DELTASONE20 M1 PO (22:01)
[2018-03-12] MEDS ORDERED: DESYREL100 MG PO (22:01)
[2018-03-12] MEDS ORDERED: BENADRYL25 MG PO (22:02)
[2018-03-12 23:13] LABS: TROP-I INTERPRETATION POSITIVE
[2018-03-12 23:22] LABS: TROPONIN-I 4.53 ng/mL (0.0-0.30)
[2018-03-13 04:15] VITALS: BP 118/85
[2018-03-13 04:40] VITALS: BP 118/85
[2018-03-13 05:56] LABS: HEMATOCRIT 37.4 % (36.0-46.0); HEMOGLOBIN 12.1 G/DL (11.9-15.5); MCHC 32.4 G/DL (30.0-36.0); MCV 92.6 FL (83-99); PLATELET COUNT 233 K/uL (156-360); RBC DIS.WIDTH-CV 15.1 % (11.8-14.6); RBC DIS.WIDTH-SD 50.8 % (39-53); RED BLOOD COUNT 4.04 M/uL (3.80-5.20); WHITE BLOOD COUNT 13.6 K/uL (4.1-10.2)
[2018-03-13 06:21] LABS: PTT 69.7 SEC (25-37)
[2018-03-13 06:55] LABS: HDL CHOLESTEROL 40 MG/DL (Desirable>=50); LDL CHOLESTEROL 80 mg/dL (Desirable<100); NON-HDL CHOLESTEROL 153 mg/dL (Desirable<160); TOTAL CHOLESTEROL 193 mg/dL (Desirable<200); TRIGLYCERIDES 366 MG/DL (Normal: <150)
[2018-03-13 07:07] LABS: TROP-I INTERPRETATION POSITIVE; TROPONIN-I 3.29 ng/mL (0.0-0.30)
[2018-03-13 07:54] VITALS: BP 103/48
[2018-03-13 11:06] VITALS: BP 110/56
[2018-03-13 12:51] LABS: TROP-I INTERPRETATION POSITIVE; TROPONIN-I 1.85 ng/mL (0.0-0.30)
[2018-03-13 20:45] VITALS: BP 124/58
[2018-03-13 21:30] VITALS: BP 105/58
[2018-03-14 00:08] VITALS: BP 117/58
[2018-03-14 05:22] LABS: BASOPHIL (%) 0.2 % (0-1); EOSINOPHIL (%) 3.1 % (0-5); EOSINOPHIL COUNT 0.5 K/uL (0-0.3); HEMOGLOBIN 11.9 G/DL (11.9-15.5); IMMATURE GRANULOCYTE (%) 1.5 % (0.0-0.7); LYMPHOCYTE (%) 16.3 % (15-42); LYMPHOCYTE COUNT 2.6 K/uL (1.0-2.8); MCH 30.6 PG (29.0-34.0); MCHC 33.1 G/DL (30.0-36.0); MCV 92.5 FL (83-99); MONOCYTE (%) 4.9 % (3-12); MONOCYTE COUNT 0.8 K/uL (0-0.8); NEUTROPHIL COUNT 11.7 K/uL (1.8-6.4); PLATELET COUNT 208 K/uL (156-360); RBC DIS.WIDTH-CV 15.2 % (11.8-14.6); RBC DIS.WIDTH-SD 51.7 % (39-53); RED BLOOD COUNT 3.89 M/uL (3.80-5.20); WHITE BLOOD COUNT 15.7 K/uL (4.1-10.2)
[2018-03-14 05:23] VITALS: BP 103/59
[2018-03-14 05:38] LABS: CHLORIDE 102 MEQ/L (99-109); CREATININE 0.9 MG/DL (0.6-1.3); GFR ESTIMATE (CALCULATED) > 59 mL/min/; GLUCOSE 139 mg/dL (70-99); POTASSIUM 3.5 MEQ/L (3.7-5.4); SODIUM 138 MEQ/L (136-147); UREA NITROGEN (BUN) 18 mg/dL (9-23)
[2018-03-14 08:20] VITALS: BP 110/56
[2018-03-14 11:56] VITALS: BP 106/54
[2018-03-14] MEDS ORDERED: CLOPIDOGREL75 MG PO (14:08)
[2018-03-14] MEDS ORDERED: NICOTINE PATCH1 EAC2 TD (14:08)
[2018-03-14] MEDS ORDERED: ATORVASTATIN CA40 MG PO (14:09)
[2018-03-14] MEDS ORDERED: LOPRESSOR25 MG PO (14:11)
[2018-03-14] MEDS ORDERED: ASPIR-LOW81 MG PO (14:12)
[2018-03-14] MEDS ORDERED: LISINOPRIL2.5 MG PO (14:12)
== END 2018-03-14 15:30 | disposition home or self-care (01) | DRG 247 ==
LOC: EME 17:00 → EDOF 23:45 → 4EAST 23:45 → ENRESERV 23:49 → 4EAST 03-13 04:08
PROVIDERS: Emergency Medicine; Hospitalist; Student in an Organized Health Care Education/Training Program
DX: I21.4 Non-ST elevation (NSTEMI) myocardial infarction (principal); I25.10 Atherosclerotic heart disease of native coronary artery without angina pectoris; E78.5 Hyperlipidemia, unspecified; F31.9 Bipolar disorder, unspecified; F17.210 Nicotine dependence, cigarettes, uncomplicated; Z82.49 Family history of ischemic heart disease and other diseases of the circulatory system
CPT/HCPCS: 71045; 71275; 80048; 80061; 80076; 81003; 83690; 83735; 84484; 84999; 85025; 85027; 85347; 85379; 85610; 85730; 93005; 99281; 99285; C1725; C1769; C1874; C1887; C1894; C9113; J0461; J1644; J2250; J2270; J2405; J3010; J3246; J7030

== ENCOUNTER 2018-03-16 01:08 | Inpatient (IN) | payer OTHER ==
[~2018-03-16] VITALS: Ht 165.1 cm; Wt 83.4 kg
[~2018-03-16 01:08] MED LIST changes: +ASPIR-LOW81 MG PO; +ATORVASTATIN CA40 MG PO; +BENADRYL25 MG PO; +CLOPIDOGREL75 MG PO; +DELTASONE20 M1 PO; +DESYREL100 MG PO; +LISINOPRIL2.5 MG PO; +LOPRESSOR25 MG PO; +NICOTINE PATCH1 EAC2 TD
[2018-03-16 01:40] LABS: HEMATOCRIT 40.2 % (36.0-46.0); HEMOGLOBIN 13.7 G/DL (11.9-15.5); MCH 30.8 PG (29.0-34.0); MCHC 34.1 G/DL (30.0-36.0); MCV 90.3 FL (83-99); PLATELET COUNT 187 K/uL (156-360); RBC DIS.WIDTH-CV 14.4 % (11.8-14.6); RBC DIS.WIDTH-SD 47.6 % (39-53); RED BLOOD COUNT 4.45 M/uL (3.80-5.20); WHITE BLOOD COUNT 17.5 K/uL (4.1-10.2)
[2018-03-16 01:51] LABS: CHLORIDE 99 mEq/L (99-109); SODIUM 136 mEq/L (136-147)
[2018-03-16 01:53] LABS: GLUCOSE 138 mg/dL (70-99)
[2018-03-16 01:57] LABS: CREATININE 0.9 mg/dL (0.6-1.3); GFR ESTIMATE (CALCULATED) > 59 mL/min/; UREA NITROGEN (BUN) 19 mg/dL (9-23)
[2018-03-16 02:01] LABS: TROP-I INTERPRETATION INDETERMINATE; TROPONIN-I 0.48 ng/mL (0.0-0.30)
[2018-03-16 02:29] LABS: APPEARANCE CLEAR ((CLEAR)); BILIRUBIN NEGATIVE; BLOOD NEGATIVE; COLOR YELLOW ((YELLOW)); GLUCOSE (STRIP) NEGATIVE; KETONES NEGATIVE; LEUKOCYTES TRACE; NITRITE NEGATIVE; PROTEIN (STRIP) NEGATIVE; SPECIFIC GRAVITY 1.021 (1.000-1.030); UROBILINOGEN 0.2 MG/DL (0.2-1.0)
[2018-03-16 02:36] LABS: BACTERIA NONE SEEN /HPF; EPITHELIAL CELLS RARE /HPF; MUCUS TRACE /LPF; RED BLOOD CELLS 0-5 /HPF (0-5); UCUL ADDED? NO; WHITE BLOOD CELLS 0-5 /HPF (0-5)
[2018-03-16 05:05] LABS: HEMATOCRIT 38.6 % (36.0-46.0); HEMOGLOBIN 13.2 G/DL (11.9-15.5); MCHC 34.2 G/DL (30.0-36.0); MCV 90.6 FL (83-99); PLATELET COUNT 161 K/uL (156-360); RBC DIS.WIDTH-CV 14.6 % (11.8-14.6); RBC DIS.WIDTH-SD 48.3 % (39-53); RED BLOOD COUNT 4.26 M/uL (3.80-5.20); WHITE BLOOD COUNT 16.5 K/uL (4.1-10.2)
[2018-03-16 05:11] LABS: INTER. NORMALIZED RATIO 0.9
[2018-03-16 05:16] LABS: PTT 26.4 SEC (25-37)
[2018-03-16 05:27] LABS: TROP-I INTERPRETATION INDETERMINATE; TROPONIN-I 0.44 ng/mL (0.0-0.30)
[2018-03-16 05:39] VITALS: BP 119/71
[2018-03-16 05:54] VITALS: BP 119/71
[2018-03-16 12:30] VITALS: BP 98/50
[2018-03-16] MEDS ORDERED: FLUOXETINE HCL40 MG PO (12:35)
[2018-03-16 12:58] LABS: TROP-I INTERPRETATION INDETERMINATE; TROPONIN-I 0.43 ng/mL (0.0-0.30)
[2018-03-16 16:28] VITALS: BP 84/53
[2018-03-16 18:33] LABS: TROP-I INTERPRETATION NEGATIVE; TROPONIN-I 0.24 ng/mL (0.0-0.30)
[2018-03-16 19:40] VITALS: BP 100/59
[2018-03-16 22:46] VITALS: BP 124/61
[2018-03-17 03:31] VITALS: BP 117/56
[2018-03-17 05:17] LABS: HEMATOCRIT 35.2 % (36.0-46.0); HEMOGLOBIN 11.5 G/DL (11.9-15.5); MCH 30.5 PG (29.0-34.0); MCHC 32.7 G/DL (30.0-36.0); MCV 93.4 FL (83-99); PLATELET COUNT 150 K/uL (156-360); RBC DIS.WIDTH-CV 14.4 % (11.8-14.6); RBC DIS.WIDTH-SD 48.9 % (39-53); RED BLOOD COUNT 3.77 M/uL (3.80-5.20); WHITE BLOOD COUNT 17.8 K/uL (4.1-10.2)
[2018-03-17 06:02] LABS: CHLORIDE 102 MEQ/L (99-109); CREATININE 0.9 MG/DL (0.6-1.3); GFR ESTIMATE (CALCULATED) > 59 mL/min/; POTASSIUM 4.5 MEQ/L (3.7-5.4); SODIUM 135 MEQ/L (136-147); UREA NITROGEN (BUN) 20 mg/dL (9-23)
[2018-03-17 06:14] LABS: GLUCOSE 244 mg/dL (70-99)
[2018-03-17 07:57] VITALS: BP 106/54
[2018-03-17 11:54] VITALS: BP 116/57
[2018-03-17] MEDS ORDERED: Colchicine,Colcrys PO (12:28)
[2018-03-17] MEDS ORDERED: PREDNISONE10 MG PO (12:32)
[2018-03-17] MEDS ORDERED: PREDNISONE5 MG PO (12:34)
== END 2018-03-17 13:10 | disposition home or self-care (01) | DRG 281 ==
LOC: EME 01:08 → 4EAST 04:15 → EDOF 04:15 → ENRESERV 04:17 → 4EAST 05:12
PROVIDERS: Emergency Medicine; Hospitalist
DX: I24.1 Dressler's syndrome (principal); I21.4 Non-ST elevation (NSTEMI) myocardial infarction; I25.110 Atherosclerotic heart disease of native coronary artery with unstable angina pectoris; D72.829 Elevated white blood cell count, unspecified; Z95.5 Presence of coronary angioplasty implant and graft; I10 Essential (primary) hypertension; E78.5 Hyperlipidemia, unspecified; M19.90 Unspecified osteoarthritis, unspecified site; J45.909 Unspecified asthma, uncomplicated; M79.7 Fibromyalgia; F31.9 Bipolar disorder, unspecified; F41.0 Panic disorder [episodic paroxysmal anxiety]; F42.9 Obsessive-compulsive disorder, unspecified; F43.10 Post-traumatic stress disorder, unspecified; Z90.710 Acquired absence of both cervix and uterus; Z79.02 Long term (current) use of antithrombotics/antiplatelets; Z79.82 Long term (current) use of aspirin; Z87.891 Personal history of nicotine dependence; Z82.49 Family history of ischemic heart disease and other diseases of the circulatory system
CPT/HCPCS: 71046; 80048; 81003; 84484; 85027; 85610; 85730; 93005; 93306; 99281; 99285; C9113; J1170; J2270; J2405; J2930; J3010; S0028

== ENCOUNTER 2018-04-09 10:28 | Emergency (ER) | payer OTHER ==
[~2018-04-09] VITALS: Ht 160 cm; Wt 85.9 kg
[~2018-04-09 10:28] MED LIST changes: +Colchicine,Colcrys PO; +FLUOXETINE HCL40 MG PO; +PREDNISONE10 MG PO; +PREDNISONE5 MG PO
[2018-04-09] MEDS ORDERED: FLEXERIL10 MG PO (13:08)
[2018-04-09] MEDS ORDERED: NORCO 10/3251 TABLET PO (13:08)
[2018-04-09 13:41] VITALS: BP 116/68
== END 2018-04-09 14:11 | disposition home or self-care (01) ==
LOC: EME 10:28
DX: M54.32 Sciatica, left side (principal); M79.662 Pain in left lower leg; M51.36 Other intervertebral disc degeneration, lumbar region; Z98.890 Other specified postprocedural states; M79.7 Fibromyalgia; J45.909 Unspecified asthma, uncomplicated; I25.2 Old myocardial infarction; F42.9 Obsessive-compulsive disorder, unspecified; F31.9 Bipolar disorder, unspecified; F41.9 Anxiety disorder, unspecified; F17.200 Nicotine dependence, unspecified, uncomplicated; Z95.5 Presence of coronary angioplasty implant and graft; Z90.49 Acquired absence of other specified parts of digestive tract; Z90.710 Acquired absence of both cervix and uterus; Z91.040 Latex allergy status; Z88.1 Allergy status to other antibiotic agents; Z88.0 Allergy status to penicillin; Z88.2 Allergy status to sulfonamides; Z88.6 Allergy status to analgesic agent; Z88.8 Allergy status to other drugs, medicaments and biological substances
CPT/HCPCS: 72100; 93971; 99281; 99284

== ENCOUNTER 2018-04-19 11:39 | Emergency (ER) | payer OTHER ==
[~2018-04-19] VITALS: Ht 162.6 cm; Wt 86.0 kg
[~2018-04-19 11:39] MED LIST changes: +NORCO 10/3251 TABLET PO
[2018-04-19 12:18] LABS: HEMATOCRIT 42.4 % (36.0-46.0); HEMOGLOBIN 14.4 G/DL (11.9-15.5); MCH 31.3 PG (29.0-34.0); MCV 92.2 FL (83-99); PLATELET COUNT 114 K/uL (156-360); RBC DIS.WIDTH-SD 47.3 % (39-53); WHITE BLOOD COUNT 12.7 K/uL (4.1-10.2)
[2018-04-19 12:28] LABS: ALBUMIN 3.8 g/dL (3.2-4.8); CHLORIDE 104 mEq/L (99-109); POTASSIUM 3.8 mEq/L (3.7-5.4); SODIUM 139 mEq/L (136-147)
[2018-04-19 12:31] LABS: GLUCOSE 112 mg/dL (70-99); TOTAL PROTEIN 7.7 g/dL (6.4-8.3)
[2018-04-19 12:33] LABS: TOTAL BILIRUBIN 0.2 mg/dL (0.0-1.0)
[2018-04-19 12:34] LABS: ALKALINE PHOSPHATASE 90 IU/L (3-129); CREATININE 1.1 mg/dL (0.6-1.3); GFR ESTIMATE (CALCULATED) 57 mL/min/
[2018-04-19 12:35] LABS: UREA NITROGEN (BUN) 14 mg/dL (9-23)
[2018-04-19 12:36] LABS: AST (GOT) 23 IU/L (2-34)
[2018-04-19 12:37] LABS: ALT (GPT) 31 IU/L (3-49)
[2018-04-19 12:43] LABS: QUANTITATIVE HCG < 4.0 MIU/ML
[2018-04-19 14:42] LABS: CREATINE KINASE 39 IU/L (1-294)
[2018-04-19 15:15] VITALS: BP 109/79
== END 2018-04-19 15:16 | disposition home or self-care (01) ==
LOC: EME 11:39 → RME 11:39
DX: M79.1 Myalgia (principal); T50.905A Adverse effect of unspecified drugs, medicaments and biological substances, initial encounter; D72.829 Elevated white blood cell count, unspecified; M79.7 Fibromyalgia; J45.909 Unspecified asthma, uncomplicated; I25.2 Old myocardial infarction; F42.9 Obsessive-compulsive disorder, unspecified; F43.10 Post-traumatic stress disorder, unspecified; F41.0 Panic disorder [episodic paroxysmal anxiety]; F31.9 Bipolar disorder, unspecified; F91.3 Oppositional defiant disorder; F17.200 Nicotine dependence, unspecified, uncomplicated; Z86.69 Personal history of other diseases of the nervous system and sense organs; Z87.19 Personal history of other diseases of the digestive system; Z95.5 Presence of coronary angioplasty implant and graft; Z98.890 Other specified postprocedural states; Z90.710 Acquired absence of both cervix and uterus; Z90.49 Acquired absence of other specified parts of digestive tract; Z91.040 Latex allergy status; Z88.0 Allergy status to penicillin; Z88.2 Allergy status to sulfonamides; Z88.1 Allergy status to other antibiotic agents; Z88.6 Allergy status to analgesic agent; Z88.8 Allergy status to other drugs, medicaments and biological substances
CPT/HCPCS: 80053; 82550; 84702; 85027; 99281; 99284